=== PATIENT | male | born 1935 | race Caucasian/White ===

== ENCOUNTER 2017-04-09 04:58 | Day surgery (SDC) | payer MEDICARE, OTHER ==
[~2017-04-09 04:58] MED LIST: AMERIGEL; ASAB PO; B121000P SC; CALTRA600D PO; FISH-EPA1000 MG PO; FOLIC PO; FOSAMAX70 MG PO; GENTLE LAX OR; LIOR10 PO; LIPITOR10 PO; LORTAB 5 PO; MOBIC15 MG PO; MULTIPLE VIT PO; MYRBETRIQ50 MG PO; OCUVITE PO; OS500 PO; OS500+D PO; VITAMIN B-121000 MC1 SL; VITAMIN D1000 UNI1 PO; VITAMIN D31000 UNIT PO; VITD PO; Vitamin B-12 STI
[2017-07-14] MEDS ORDERED: OCUVITE PO (11:49)
[2017-07-14] MEDS ORDERED: MAXIMUM D3 PO (11:49)
[2017-07-14] MEDS ORDERED: LAXATIVE (11:51)
[2017-08-07] MEDS ORDERED: FOSAMAX70 MG PO (12:12)
[2017-08-07] MEDS ORDERED: LIPITOR10 PO (12:12)
[2017-08-07] MEDS ORDERED: MAXIMUM D3 PO (12:13)
[2017-08-07] MEDS ORDERED: FISH-EPA1000 MG PO (12:13)
[2017-08-07] MEDS ORDERED: [UNRECOGNIZED DRUG - OTHER] PO (12:15)
[2017-08-07] MEDS ORDERED: HALF81 PO (12:16)
[2017-08-07] MEDS ORDERED: MEDROLPAK4 PO (12:16)
[2017-08-07] MEDS ORDERED: FOLIC PO (12:17)
[2017-08-07] MEDS ORDERED: NORCO1 TA1 PO (12:17)
[2017-08-07] MEDS ORDERED: FLEX PO (12:17)
[2017-08-07] MEDS ORDERED: B121000P IM (12:18)
[2017-08-07] MEDS ORDERED: FLONASE NAS (12:18)
[2017-08-09] MEDS ORDERED: PCET PO (11:46)
== END 2017-04-09 23:59 | disposition home or self-care (01) ==
LOC: SDC 04:58
PROVIDERS: Orthopaedic Surgery
PROC: 3E0S3BZ Introduction of Anesthetic Agent into Epidural Space, Percutaneous Approach (ICD-10-PCS; 2017-04-09)
PROC: 3E0S33Z Introduction of Anti-inflammatory into Epidural Space, Percutaneous Approach (ICD-10-PCS; principal; 2017-04-09 07:15)
DX: M54.16 Radiculopathy, lumbar region (principal); H91.90 Unspecified hearing loss, unspecified ear; I49.9 Cardiac arrhythmia, unspecified; M19.90 Unspecified osteoarthritis, unspecified site; M54.5 Low back pain; H35.30 Unspecified macular degeneration; Z98.1 Arthrodesis status; Z95.1 Presence of aortocoronary bypass graft; Z96.1 Presence of intraocular lens; Z90.49 Acquired absence of other specified parts of digestive tract; Z98.890 Other specified postprocedural states; Z95.0 Presence of cardiac pacemaker; Z79.899 Other long term (current) drug therapy; Z98.41 Cataract extraction status, right eye; Z97.4 Presence of external hearing-aid; Z98.42 Cataract extraction status, left eye; Z85.820 Personal history of malignant melanoma of skin; Z85.819 Personal history of malignant neoplasm of unspecified site of lip, oral cavity, and pharynx
CPT/HCPCS: J1040; J2250; J3010; Q9967

== ENCOUNTER 2017-04-23 05:01 | Day surgery (SDC) | payer MEDICARE, OTHER ==
[2017-07-14] MEDS ORDERED: OCUVITE PO (11:49)
[2017-07-14] MEDS ORDERED: MAXIMUM D3 PO (11:49)
[2017-07-14] MEDS ORDERED: LAXATIVE (11:51)
[2017-08-07] MEDS ORDERED: FOSAMAX70 MG PO (12:12)
[2017-08-07] MEDS ORDERED: LIPITOR10 PO (12:12)
[2017-08-07] MEDS ORDERED: FISH-EPA1000 MG PO (12:13)
[2017-08-07] MEDS ORDERED: MAXIMUM D3 PO (12:13)
[2017-08-07] MEDS ORDERED: [UNRECOGNIZED DRUG - OTHER] PO (12:15)
[2017-08-07] MEDS ORDERED: MEDROLPAK4 PO (12:16)
[2017-08-07] MEDS ORDERED: HALF81 PO (12:16)
[2017-08-07] MEDS ORDERED: FOLIC PO (12:17)
[2017-08-07] MEDS ORDERED: NORCO1 TA1 PO (12:17)
[2017-08-07] MEDS ORDERED: FLEX PO (12:17)
[2017-08-07] MEDS ORDERED: B121000P IM (12:18)
[2017-08-07] MEDS ORDERED: FLONASE NAS (12:18)
[2017-08-09] MEDS ORDERED: PCET PO (11:46)
== END 2017-04-23 08:20 | disposition home or self-care (01) ==
LOC: SDC 05:01
PROVIDERS: Orthopaedic Surgery
PROC: 3E0S3BZ Introduction of Anesthetic Agent into Epidural Space, Percutaneous Approach (ICD-10-PCS; 2017-04-23)
PROC: 3E0S33Z Introduction of Anti-inflammatory into Epidural Space, Percutaneous Approach (ICD-10-PCS; principal; 2017-04-23 07:30)
DX: M54.16 Radiculopathy, lumbar region (principal); M54.5 Low back pain; R33.9 Retention of urine, unspecified; I49.9 Cardiac arrhythmia, unspecified; M19.90 Unspecified osteoarthritis, unspecified site; H35.30 Unspecified macular degeneration; E78.00 Pure hypercholesterolemia, unspecified; I25.10 Atherosclerotic heart disease of native coronary artery without angina pectoris; H91.90 Unspecified hearing loss, unspecified ear; Z95.1 Presence of aortocoronary bypass graft; Z85.820 Personal history of malignant melanoma of skin; Z85.819 Personal history of malignant neoplasm of unspecified site of lip, oral cavity, and pharynx; Z98.42 Cataract extraction status, left eye; Z98.1 Arthrodesis status; Z90.49 Acquired absence of other specified parts of digestive tract; Z98.41 Cataract extraction status, right eye; Z96.1 Presence of intraocular lens; Z97.4 Presence of external hearing-aid; Z95.0 Presence of cardiac pacemaker; Z79.899 Other long term (current) drug therapy; Z79.82 Long term (current) use of aspirin; Z79.2 Long term (current) use of antibiotics
CPT/HCPCS: J1040; J2250; J2405; J3010; Q9967